=== PATIENT | male | born 1965 | race Two or more races ===

== ENCOUNTER 2025-08-19 17:46 | Inpatient (IN) | payer MEDICARE, MEDICAID ==
[~2025-08-19] VITALS: Ht 182.9 cm; Wt 69.0 kg
[~2025-08-19 17:46] MED LIST: ASPI-498 PO; ATOR40TA52 PO; CLOP75TA70 PO; NIAC-10 PO; NITR0.4S29 SL
[2025-08-19 18:00] VITALS: PULSE 61; RESP 14; O2SAT 100
--- NOTE | 2025-08-19 19:23 | ED.PDOC ---
History of Present Illness HPI Comments 60-year-old male who came to ER via EMS for hypoglycemia. Per EMS, patient picked up at home, for the past few weeks patient has been sleepless, weak, dizzy, and unable to eat or drink due to financial constraints (?). Noted the patient speak slowly, and he claims this has been ongoing the past 2 weeks. Blo od sugar on scene was 54, was given D10 and it went up to 157. Patient has a history of schizophrenia. REVIEW OF SYSTEMS: General: No fever, no chills, or fatigue HEENT: No sore throat, no earache, no congestion, no neck pain. Cardiac: No chest pain. No palpitations. Lungs: No shortness of breath, no cough. GI: No nausea, no vomiting, no diarrhea, no constipation, no abdominal pain : No dysuria, frequency, or urgency. No hematuria. Musculoskeletal: No joint pain , no joint swelling, no extremity edema. Skin: No rash, no itching. Neuro: No headache, (+) dizziness, (+) weakness, EXAM: General: Awake, alert and oriented. No acute distress. Skin: Skin dry, poor skin turgor. Appropriate color for ethnicity. HEENT: The head is normocephalic and atraumatic. Conjunctivae are clear without exudates or hemorrhage. Sclera is non-icteric. EOM are intact. No signs of nystagmus. Eyelids are normal in appearance without swelling or lesions. Oral mucosa is pink and moist Neck: The neck is supple with normal range of motion. No JVD. Cardiac: Heart rate and rhythm are normal. No murmurs, gallops, or rubs are auscultated. Respiratory: No signs of respiratory distress. Lung sounds are clear in all lobes bilaterally without rales, rhonchi, or wheezes. Abdominal: Abdomen is soft, non-tender without distention. Bowel sounds are present and normoactive in all four quadrants. Extremities: Upper and lower extremities are atraumatic in appearance without deformity or edema. Neurological: The patient is awake, alert and oriented Speech is slow and slurred. Patient reports this has been ongoing for a week. There is no facial asymmetry. No focal weakness. Chief Complaint: Hypoglycemia Time Seen by MD: 19:22 Primary Care Provider: SHEREEN BENNETT? Reviewed Notes: Nurses Notes Allergies: Coded Allergies: NO KNOWN ALLERGIES (Unverified , 9/30/16) Home Meds Reported Medications Aspirin (ASPIRIN 81) 81 Mg Tab, 81 MG PO, TAB 06/13/16 Clopidogrel Bisulfate (CLOPIDOGREL) 75 Mg Tab, 75 MG PO DAILY, #90 TAB 1 Refill 06/13/16 Niacin (Antihyperlipidemic) (Niaspan) 500 Mg Tab, 500 MG PO, TAB 06/13/16 Atorvastatin Calcium (ATORVASTATIN CALCIUM) 40 Mg Tab, 1 TAB PO DAILY, #30 TAB 5 Refills 06/13/16 Nitroglycerin (NTROSTAT SUBLINGUAL) 0.4 Mg Sl, 0.4 MG SL PRN PRN for FOR CHEST PAIN, #25 06/11/16 Information Source: Patient, Emergency Med Personnel Mode of Arrival: EMS Past Medical History Surgical History: PTCA Family History Family History: No family hx of Heart dawood Social History Smoker: Non-Smoker Alcohol: Denies ETOH Use Drugs: Denies Drug Use Lives In: Home Was a procedure done? Was a procedure done?: No Differential Dx Considerations may include: Differential diagnosis considered includes but not limited to intracranial hemorrhage, stroke, head injury, seizure, metabolic disturbance, electrolyte imbalance, infection, substance intoxication, psychiatric cause, other systemic illness, other X-Ray, Labs, Meds, VS Vital Signs Date Time Temp Pulse Resp B/P (MAP) Pulse Ox O2 Delivery O2 Flow Rate FiO2 08/19/25 18:12 97.6 72 18 122/80 100 97.6 08/19/25 18:00 61 14 100 Room Air* 0 21 08/19/25 18:00 61 14 109/73 (85) 100 Lab Test 08/19/25 19:50 Range/Units Sodium Level 119 *L 136-145 mmol/L Potassium Level 3.2 L 3.5-5.1 mmol/L Chloride Level 85 L 98-107 mmol/L Carbon Dioxide Level 25 20-31 mmol/L Anion Gap 9 5-15 Blood Urea Nitrogen 9 9-23 mg/dL Creatinine 1.04 0.700-1.30 mg/dL Glomerular Filtration Rate Calc 83 >90 mL/min BUN/Creatinine Ratio 8.7 L 10.0-20.0 Serum Glucose 141 H 74-106 mg/dL Calcium Level 9.4 8.7-10.4 mg/dL Total Bilirubin 1.0 0.2-1.0 mg/dL Aspartate Amino Transferase (AST) 69 H 13-40 U/L Alanine Aminotransferase (ALT) 27 7-40 U/L Alkaline Phosphatase 145 H 46-116 U/L Troponin I High Sensitivity 4 </=54 ng/L Total Protein 7.7 5.7-8.2 g/dL Albumin 4.6 3.2-4.8 g/dL Current Medications Medications (Trade) Dose Ordered Sig/Egnaro Route Start Time Stop Time Status Last Admin Sodium Chloride 1,000 ml @ 1,000 mls/hr Q1H ONCE IV 08/19/25 19:00 08/19/25 19:59 DC 08/19/25 19:52 Time of 1ST Reevaluation: 19:16 Reevaluation 1ST: Unchanged Patient Education/Counseling: Need For Follow Up Family Education/Counseling: No Family Present SEPSIS Sepsis Screen Date sepsis recognized/suspect: Aug 19, 2025 Time Sepsis recognized/suspect: 1815 Recent Procedure: No On Antibiotic Therapy: No Respiratory Rate >20: No Heart Rate >90: No Temp<36 C (96.8 F) or >38.3 C: No SBP <90 or MAP <65 mmHG: No New Acute Mental Status Change: No Is the patient on CPAP, BIPAP,: No Physician Orders Electrocardigram (08/19/25 19:00) Head Without Contrast (08/19/25 19:00) Regular Diet (08/20/25 Breakfast) Complete Blood Count (08/19/25 20:21) Vital Signs Date Time Temp Pulse Resp B/P (MAP) Pulse Ox O2 Delivery O2 Flow Rate FiO2 08/19/25 18:12 97.6 72 18 122/80 100 97.6 08/19/25 18:00 61 14 100 Room Air* 0 21 08/19/25 18:00 61 14 109/73 (85) 100 Medications Medications Dose Ordered Sig/Genaro Route Start Time Stop Time Status Last Admin Dose Admin Sodium Chloride 1,000 ml @ 1,000 mls/hr Q1H ONCE IV 08/19/25 19:00 08/19/25 19:59 DC 08/19/25 19:52 Departure 1 Departure Time of Disposition: 20:22 Impression: Primary Impression: Hyponatremia Disposition: ADMITTED INPATIENT Condition: Stable Comments 60-year-old male who presents to the emergency department reporting hypoglyc emia. Blood sugar improved with treatment by EMS. Patient found to be hyponatremic. Likely chronic. Patient admitted to hospitalist service for further treatment, evaluation and monitoring. Critical Care Note Critical Care Time?: No Stability Stability form required: No Heart Score Heart Score: Heart Score Response (Comments) Value History N/A 0 EKG N/A 0 Age N/A 0 Risk Factors N/A 0 Troponin N/A 0 Total 0 I personally scribed for CRISTINE GRIMM MD ([email or web address]) on 08/19/25 at 19:23. Electronically submitted by Dru Murry ([email or web address]). CRISTINE GRIMM MD Aug 19, 2025 19:23
[2025-08-19] MEDS: SODIUM CHLORIDE 0.9% 1,000 ML IV ONE (19:52)
--- NOTE | 2025-08-19 19:54 | DVH ---
EXAM: CT HEAD WITHOUT CONTRAST INDICATION: Slurred speech TECHNIQUE: CT of the head without intravenous contrast. Radiation Dose : 1. Head: CT Dose: CTDI volume is 50.09 mGy. Dose-length product is 703.04 mGy*cm The dose indicators for CT are the volume Computed Tomography (CT) Dose Index (CTDIvol) and the Dose Length Product (DLP), and are measured in units of mGy and mGy-cm, respectively. These indicators are not patient dose, but values generated from the CT scanner acquisition factors. The report includes radiation exposure data for exposures received during this examination. COMPARISON: None FINDINGS: Motion artifact degrades fine detail. The cerebral parenchyma appears to be normal configuration and attenuation. The ventricles, cisterns, and sulci appear age-appropriate. There is no evidence for acute territorial infarct, hemorrhage, or mass effect. The orbits are normal. The visualized paranasal sinuses and mastoid air cells are clear. The soft tissues and osseous structures appear within normal limits. IMPRESSION: 1. No acute territorial infarct, intracranial hemorrhage, or mass effect. If clinical symptoms persist, MRI may be beneficial in further evaluation. Radiation optimization: All CT scans at this facility use at least one of these dose optimization techniques: automated exposure control mA and/or kV adjustment per patient size (includes targeted exams where dose is matched to clinical indication) or iterative reconstruction.
[2025-08-19 20:16] LABS: Alanine Aminotransferase 27 U/L (7-40); Albumin 4.6 g/dL (3.2-4.8); Anion Gap 9 (5-15); BUN/Creatinine Ratio 8.7 (10.0-20.0); Bilirubin, Total 1.0 mg/dL (0.2-1.0); Calcium 9.4 mg/dL (8.7-10.4); Carbon Dioxide 25 mmol/L (20-31); Total Protein 7.7 g/dL (5.7-8.2)
[2025-08-19 20:20] LABS: Alkaline Phosphatase 145 U/L (46-116); Blood Urea Nitrogen 9 mg/dL (9-23); Chloride 85 mmol/L (98-107); Glucose 141 mg/dL (74-106); Potassium 3.2 mmol/L (3.5-5.1)
[2025-08-19 20:21] LABS: Sodium 119 mmol/L (136-145)
[2025-08-19 20:55] LABS: Hematocrit 32.1 % (41.0-53.0); Hemoglobin 11.7 g/dL (13.5-17.5); Mean Corpuscular Hemoglobin 30.3 pg (28.0-32.0); Mean Corpuscular Volume 83.5 fL (80.0-100.0); Nucleated Red Blood Cells % 0.1 %
[2025-08-19] MEDS: POTASSIUM CHL 20MEQ/100ML 100 ML IV ONE (23:07)
[2025-08-20] VITALS (8 sets, daily range): BP systolic 112–131; BP diastolic 69–82; PULSE 53–77; RESP 16–17; TEMP 97.1–98; O2SAT 93–100
[2025-08-20] MEDS: SODIUM CHLORIDE 0.9% 1,000 ML IV SCH
[2025-08-20] MEDS ORDERED: DOCUSATE SOD 100 MG CAP PO PRN
[2025-08-20] MEDS ORDERED: NITROGLYCERIN 0.4 MG SL TAB SL PRN
[2025-08-20] MEDS ORDERED: ONDANSETRON HCL 4 MG/2 ML VIAL IV PRN
[2025-08-20] MEDS ORDERED: ACETAMINOPHEN 325 MG TAB PO PRN
[2025-08-20] MEDS ORDERED: MORPHINE SULFATE INJ 2 MG/ml SYRG IV PRN
[2025-08-20] MEDS ORDERED: HYDROcodone-ACET 5/325MG TAB PO PRN
--- NOTE | 2025-08-20 00:17 | DVHHP2 ---
History of Present Illness Reason for Visit: Hyponatremia History of Present Illness The patient is a 60-year-old male with past medical history of schizophrenia, acute coronary syndrome, and hyperlipidemia who presented to [facility] ED for evaluation of hypoglycemia. As reported by EMS, patient was picked up at home, noted to be sleepless, weakness, dizziness, unable to eat or drink due to financial constraints for the past 2 weeks. Blood sugar on the scene was 54 mg/dL and was given D10, blood glucose improved to 157 EN route to our facility ED. Patient was seen and evaluated in the ED, laboratory data shows WBC 2.4, hemoglobin 11.7, hematocrit 32.1, platelets 206, sodium 119, potassium 3.2, BUN 9, creatinine 1.04, GFR 83, glucose 141, calcium 9.4, troponin 4, AST 69, ALT 27, alkaline phos 145, blood pressure 111/65, heart rate 60, temperature 97.6 F, O2 saturation 99% on room air. Head CT showed no acute territorial infarct, intracranial hemorrhage, or mass effect. Please see medication orders section in the computer. On my assessment, patient denied chest pain, no headache, dizziness, diaphoresis, seizures activities, shortness of breaths, no diarrhea, nausea, vomiting, fever, no chills. Patient was admitted for further evaluation and medical management. Past Medical History Hyperlipidemia, Acute coronary syndrome, schizophrenia. Past Surgical History PTCA Family History Reviewed, noncontributory to the management of this case. Past Social History The patient lives at home, denies smoking, alcohol or illicit drugs abuse. Review of Systems Constitutional: Yes: Weakness; No: Fever, Chills, Sweats, Malaise, Other Eyes: No: Pain, Vision change, Conjunctivae inflammation, Eyelid inflammation, Other, Redness ENT: No: Ear pain, Ear discharge, Nose pain, Nose discharge, Nose congestion, Mouth pain, Mouth swelling, Throat pain, Throat swelling, Other Respiratory: No: Cough, Dry, Shortness of breath, SOB with excertion, Wheezing, Hemoptysis, Pleuritic Pain, Sputum, Wheezing, Other Cardiovascular: No: Chest Pain, Palpitations, Orthopnea, Paroxysmal Noc. Dyspnea, Edema, Lt Headedness, Other Gastrointestinal: No: Nausea, Vomiting, Abdominal Pain, Diarrhea, Constipation, Melena, Hematochezia, Other Genitourinary: No Dysuria, No Frequency, No Incontinence, No Hematuria, No Retention, No Other Musculoskeletal: No: other, neck pain, shoulder pain, arm pain, back pain, hand pain, leg pain, foot pain Skin: No: Rash, Lesions, Jaundice, Bruising, Other Neurological: No: Weakness, Numbness, Incoordination, Change in speech, Confusion, Seizures, Other Allergies: Coded Allergies: NO KNOWN ALLERGIES (Unverified , 05/25/16) Exam Vital Signs Vital Signs Date Time Temp Pulse Resp B/P (MAP) Pulse Ox O2 Delivery O2 Flow Rate FiO2 08/19/25 19:30 Room Air* 0 21 08/19/25 19:30 97.5 60 11 111/65 (80) 99 97.5 General Appearance: Alert, Oriented X3, Cooperative, No acute distress HEENT: Atraumatic, PERRLA, EOMI, Mucous membr. moist/pink Respiratory: Normal air movement Cardiovascular: Regular rate, Normal S1, Normal S2, No murmurs Abdominal: Normal bowel sounds, Soft, No tenderness, No hepatospenomegaly, No masses Extremities: No clubbing, No cyanosis, No edema, Normal pulses, No tenderness/swelling Skin: No rashes, No significant lesion Neuro: Normal speech, Normal tone, Sensation intact, Cranial nerves 3-12 NL, Reflexes 2+, Other (Generalized weakness) Psych/Mental Status: Mental status NL, Mood NL Labs/Xrays Labs Test 08/19/25 19:50 Range/Units White Blood Count 2.4 L 4.4-10.8 10^3/uL Red Blood Count 3.85 L 4.5-5.90 10^6/uL Hemoglobin 11.7 L 13.5-17.5 g/dL Hematocrit 32.1 L 41.0-53.0 % Mean Corpuscular Volume 83.5 80.0-100.0 fL Mean Corpuscular Hemoglobin 30.3 28.0-32.0 pg Mean Corpuscular Hemoglobin Concent 36.3 H 32.0-36.0 g/dL Red Cell Distribution Width 13.2 11.8-14.3 % Platelet Count 206 140-450 10^3/uL Mean Platelet Volume 8.9 6.9-10.8 fL Neutrophils (%) (Auto) 54.6 37.0-80.0 % Lymphocytes (%) (Auto) 35.1 10.0-50.0 % Monocytes (%) (Auto) 3.2 0.0-12.0 % Eosinophils (%) (Auto) 6.0 0.0-7.0 % Basophils (%) (Auto) 1.1 0.0-2.0 % Neutrophils # (Auto) 1.3 L 1.6-8.6 10 ^3/uL Lymphocytes # (Auto) 0.9 0.4-5.4 10 ^3/uL Monocytes # (Auto) 0.1 0-1.3 10 ^3/uL Eosinophils # (Auto) 0.1 0-0.8 10 ^3/uL Basophils # (Auto) 0 0-0.2 10 ^3/uL Nucleated Red Blood Cells 0.1 % Sodium Level 119 *L 136-145 mmol/L Potassium Level 3.2 L 3.5-5.1 mmol/L Chloride Level 85 L 98-107 mmol/L Carbon Dioxide Level 25 20-31 mmol/L Anion Gap 9 5-15 Blood Urea Nitrogen 9 9-23 mg/dL Creatinine 1.04 0.700-1.30 mg/dL Glomerular Filtration Rate Calc 83 >90 mL/min BUN/Creatinine Ratio 8.7 L 10.0-20.0 Serum Glucose 141 H 74-106 mg/dL Calcium Level 9.4 8.7-10.4 mg/dL Total Bilirubin 1.0 0.2-1.0 mg/dL Aspartate Amino Transferase (AST) 69 H 13-40 U/L Alanine Aminotransferase (ALT) 27 7-40 U/L Alkaline Phosphatase 145 H 46-116 U/L Troponin I High Sensitivity 4 </=54 ng/L Total Protein 7.7 5.7-8.2 g/dL Albumin 4.6 3.2-4.8 g/dL PATIENT: SUE BIRMINGHAMOACCT: [id number] UNIT: [id number] : 1965 LOC: ER ROOM / BED: / AGE / SEX: 60 / M ADM STATUS: REG ER SERVICE 1900 ORDERING PHYSICIAN: CRISTINE GRIMM MD PROCEDURE(s): HWOCT - HEAD WITHOUT CONTRAST REASON: Slurred speech ORDER NUMBER(s): [id number], ACCESSION NUMBER(s): [id number] EXAM: CT HEAD WITHOUT CONTRAST INDICATION: Slurred speech TECHNIQUE: CT of the head without intravenous contrast. Radiation Dose : 1. Head: CT Dose: CTDI volume is 50.09 mGy. Dose-length product is 703.04 mGy*cm The dose indicators for CT are the volume Computed Tomography (CT) Dose Index (CTDIvol) and the Dose Length Product (DLP), and are measured in units of mGy and mGy-cm, respectively. These indicators are not patient dose, but values generated from the CT scanner acquisition factors. The report includes radiation exposure data for exposures received during this examination. COMPARISON: None FINDINGS: Motion artifact degrades fine detail. The cerebral parenchyma appears to be normal configuration and attenuation. The ventricles, cisterns, and sulci appear age-appropriate. There is no evidence for acute territorial infarct, hemorrhage, or mass effect. The orbits are normal. The visualized paranasal sinuses and mastoid air cells are clear. The soft tissues and osseous structures appear within normal limits. IMPRESSION: 1. No acute territorial infarct, intracranial hemorrhage, or mass effect. If clinical symptoms persist, MRI may be beneficial in further evaluation. SEPSIS Sepsis Screen Date sepsis recognized/suspect: Aug 19, 2025 Time Sepsis recognized/suspect: 1929 Recent Procedure: No On Antibiotic Therapy: No Respiratory Rate >20: No Heart Rate >90: No Temp<36 C (96.8 F) or >38.3 C: No SBP <90 or MAP <65 mmHG: No New Acute Mental Status Change: No Is the patient on CPAP, BIPAP,: No Physician Orders Electrocardigram (08/19/25 19:00) Head Without Contrast (08/19/25 19:00) Regular Diet (08/20/25 Breakfast) Vital Signs Date Time Temp Pulse Resp B/P (MAP) Pulse Ox O2 Delivery O2 Flow Rate FiO2 08/19/25 19:30 Room Air* 0 21 08/19/25 19:30 97.5 60 11 111/65 (80) 99 97.5 08/19/25 18:12 97.6 72 18 122/80 100 97.6 08/19/25 18:00 61 14 100 Room Air* 0 21 08/19/25 18:00 61 14 109/73 (85) 100 Laboratory Tests Test 08/19/25 19:50 White Blood Count 2.4 10^3/uL (4.4-10.8) L Medications Medications Dose Ordered Sig/Genaro Route Start Time Stop Time Status Last Admin Dose Admin Potassium Chloride 100 ml @ 50 mls/hr ONCE ONCE IV 08/19/25 20:30 08/19/25 22:29 DC 08/19/25 23:07 50 MLS/HR Sodium Chloride 1,000 ml @ 1,000 mls/hr Q1H ONCE IV 08/19/25 19:00 08/19/25 19:59 DC 08/19/25 19:52 1,000 MLS/HR Assessment/Plan Assessment/Plan Hyponatremia Leukopenia Hypokalemia Hyperglycemia Generalized weakness Plan 1. Admit to telemetry unit 2. Breathing treatment 3. Pain control management 4. Management of fluids and electrolytes 5. Consultation for Nephrology 6. Diagnostic tests head CT 7. DVT prophylaxis-on aspirin 8. Repeat labs CBC, CMP in a.m. 9. Continue with current medical management 10. Treatment plan discussed with patient and RN. Patient verbalized unde rstanding. Plan discussed with: Patient, Other (RN) Problem List: (1) Hyponatremia (2) Leukopenia (3) Hypokalemia (4) Hyperglycemia (5) Generalized weakness Date of Service: Aug 19, 2025 Billing Provider: ISMAEL HIRSCH DNP Common Visit Codes: [id number] INP/OBS CARE (HIGH) ISMAEL HIRSCH DNP Aug 20, 2025 00:17
[2025-08-20] MEDS ORDERED: OLAN1TAB26 PO (01:52)
[2025-08-20 07:18] LABS: Hemoglobin 11.4 g/dL (13.5-17.5)
[2025-08-20 07:20] LABS: Hematocrit 31.6 % (41.0-53.0); Mean Corpuscular Hemoglobin 30.7 pg (28.0-32.0); Mean Corpuscular Volume 84.9 fL (80.0-100.0); Nucleated Red Blood Cells % 0.3 %
[2025-08-20 07:44] LABS: Alanine Aminotransferase 42 U/L (7-40); Albumin 4.2 g/dL (3.2-4.8); Alkaline Phosphatase 182 U/L (46-116); Anion Gap 8 (5-15); BUN/Creatinine Ratio 11.9 (10.0-20.0); Blood Urea Nitrogen 10 mg/dL (9-23); Calcium 9.0 mg/dL (8.7-10.4); Carbon Dioxide 25 mmol/L (20-31); Chloride 92 mmol/L (98-107); Glucose 65 mg/dL (74-106); Potassium 4.1 mmol/L (3.5-5.1); Sodium 125 mmol/L (136-145); Total Protein 6.9 g/dL (5.7-8.2)
[2025-08-20 07:45] LABS: Bilirubin, Total 1.1 mg/dL (0.2-1.0)
[2025-08-20] MEDS: CLOPIDOGREL BISULFATE 75 MG TAB PO SCH (08:51)
--- NOTE | 2025-08-20 09:26 | DVH ---
TECHNIQUE: Real-time ultrasound imaging of the abdomen was performed with grayscale and color Doppler. INDICATION: Property Appraiser/hepatic pathology COMPARISON: None FINDINGS: Limited evaluation of the liver due to bowel gas Liver measures 14.9 cm. Imaged portions unremarkable in echogenicity and echotexture without focal mass. Portal vein is normal in caliber and demonstrates normal hepatopetal flow. Gallbladder demonstrates no evidence for cholelithiasis. There is no pericholecystic fluid. The wall thickness is normal. The common bile duct measures 3 mm. No intrahepatic biliary ductal dilatation. The right kidney measures 10.6 cm. There is no hydronephrosis or sonographic evidence of nephrolithiasis. The visualized portion of the pancreas is unremarkable. IMPRESSION: Limited characterization of the left hepatic lobe. Recommend obtaining CT abdomen pelvis or multiphasic MRI abdomen with and without contrast to further characterize if there is concern for liver abnormality. No evidence for cholelithiasis.
[2025-08-20] MEDS ORDERED: DEXTROSE (50%) 50ML SYRG IV PRN (09:30)
[2025-08-20] MEDS: FOLIC ACID 1 MG in D5W 5% 50 ML INJ SCH (10:00)
[2025-08-20] MEDS: THIAMINE 100mg/ml INJ (200mg/2ml VIAL) IV SCH (10:00)
[2025-08-20] MEDS ORDERED: THIAMINE 100mg/ml INJ (200mg/2ml VIAL) IV SCH (10:00)
[2025-08-20 10:08] LABS: Urine Protein, UAD Negative (Negative)
[2025-08-20 10:10] LABS: Amphetamine Screen, Urine Neg (NEGATIVE); Barbiturate Scree,Urine Neg (NEGATIVE); Benzodiazephine Screen, Urine Neg (NEGATIVE); Cannabinoid Screen, Urine Neg (NEGATIVE); Cocaine Screen, Urine Neg (NEGATIVE); Opiate Scree,Urine Neg (NEGATIVE); Phencyclidine Screen, Urine Neg (NEGATIVE)
--- NOTE | 2025-08-20 10:28 | DVHINCON2 ---
Date of service: Aug 20, 2025 Referring Physician Zhen Nolasco, nurse practitioner Reason for Consultation Hyponatremia History of Present Illness Patient is a 60-year-old male with past medical history significant for atrial fibrillation, coronary artery disease schizophrenia and hyperlipidemia is admitted for generalized weakness found to have hyponatremia with normal kidney function nephrology is consulted to assist in the management of hyponatremia Past Medical History Hyperlipidemia , coronary artery disease AFib Schizophrenia Past Surgical History PTCA Allergies: Coded Allergies: NO KNOWN ALLERGIES (Unverified , 05/25/16) Home Meds Reported Medications Olanzapine (OLANZAPINE) 7.5 Mg Tab, 7.5 MG PO DAILY for 30 Days, MG 08/20/25 Aspirin (ASPIRIN 81) 81 Mg Tab, 81 MG PO, TAB 06/13/16 Clopidogrel Bisulfate (CLOPIDOGREL) 75 Mg Tab, 75 MG PO DAILY, #90 TAB 1 Refill 06/13/16 Niacin (Antihyperlipidemic) (Niaspan) 500 Mg Tab, 500 MG PO, TAB 06/13/16 Atorvastatin Calcium (ATORVASTATIN CALCIUM) 40 Mg Tab, 1 TAB PO DAILY, #30 TAB 5 Refills 06/13/16 Nitroglycerin (NTROSTAT SUBLINGUAL) 0.4 Mg Sl, 0.4 MG SL PRN PRN for FOR CHEST PAIN, #25 06/11/16 Current Medications Current Medications Medications (Trade) Dose Ordered Sig/Genaro Route PRN Reason Start Time Stop Time Status Last Admin Atorvastatin Calcium (Lipitor) 20 mg HS PO 08/20/25 22:00 Aspirin 81 mg DAILY PO 08/20/25 10:00 08/20/25 08:52 Clopidogrel Bisulfate (Plavix) 75 mg DAILY PO 08/20/25 10:00 08/20/25 10:44 DC 08/20/25 08:51 Sodium Chloride 1,000 ml @ 120 mls/hr Q8H20M IV 08/20/25 00:00 08/20/25 09:23 DC 08/20/25 06:42 Acetaminophen/ Hydrocodone Bitart ([place] 5/325MG Tab) 1 tab Q4HP PRN PO MODERATE PAIN (4-6 PAIN SCALE) 08/20/25 00:00 Ondansetron HCl (Zofran) 4 mg Q4HP PRN IV NAUSEA / VOMITING 08/20/25 00:00 Docusate Sodium (Colace Capsule) 100 mg BIDPRN PRN PO FOR CONSTIPATION 08/20/25 00:00 Acetaminophen (Tylenol Tablet) 650 mg Q6HP PRN PO PAIN SCALE 1-3 OR TEMP>100.4 08/20/25 00:00 Nitroglycerin (Ntrostat Sublingual) 0.4 mg Q5MINP PRN SL FOR CHEST PAIN 08/20/25 00:00 Morphine Sulfate 2 mg Q30M PRN IV FOR CHEST PAIN 08/20/25 00:00 Thiamine HCl 100 mg DAILY IV 08/20/25 10:00 08/20/25 09:42 DC Diagnostic Test (Pha) (Accu-Chek Comfort Curve T) 1 strip IQ4HR 08/20/25 12:00 Dextrose 50 ml UD PRN IV Blood Sugar LESS THAN 60 08/20/25 09:30 Thiamine HCl 100 mg DAILY IV 08/20/25 09:30 Folic Acid 1 mg/ Dextrose 50.2 ml @ 200.8 mls/ hr DAILY INJ 08/20/25 09:30 Family History: Cancer G8 BROTHER G8 SISTER Family history: Cardiovascular disease G8 BROTHER Review of Systems All 12 item review of systems reviewed with the patient nonsignificant except what is mentioned in the history of present illness H&P Exam Vital Signs/I&O Vital Sign Date Time Temp Pulse Resp B/P (MAP) Pulse Ox O2 Delivery O2 Flow Rate FiO2 08/20/25 09:05 98.0 58 16 131/82 (98) 100 98.0 08/20/25 01:37 Room Air* 0 21 Intake and Output 08/19/25 08/20/25 19:00 07:00 Intake Total 0 ml Output Total 499 ml Balance -499 ml Intake Oral 0 ml Output Urine Total 499 ml Physical Exam Patient lying comfortably in bed, at the bedside Lungs clear to auscultation bilaterally Cardiac exam regular rate and rhythm GI soft nontender was normal Extremities no clubbing cyanosis or edema Neuro nonfocal Labs/Diagnostic Data Labs/Diagnostic Data Laboratory Tests Test 08/20/25 10:45 08/20/25 10:43 08/20/25 09:06 08/20/25 08:54 Range/Units Sodium Level 126 L 136-145 mmol/L Lactic Acid Level 1.6 0.4-2.0 mmol/L Phosphorus Level 1.8 L 2.4-5.1 mg/dL Thyroid Stimulating Hormone (TSH) 2.20 0.55-4.78 uIU/mL Urine Color Light-yellow Yellow Urine Clarity Clear Clear Urine pH 5.5 5.0-9.0 Urine Specific [place] 1.007 1.001-1.035 Urine Protein Negative Negative Urine Ketones Trace Negative Urine Blood Negative Negative /uL Urine Nitrite Negative Negative Urine Bilirubin Negative Negative Urine Urobilinogen Normal Negative mg/dL Urine Leukocyte Esterase Negative Negative /uL Urine RBC <1 0 - 3 /hpf Urine Microscopic WBC 1 0-3 /HPF Urine Squamous Epithelial Cells None seen <5 /hpf Urine Bacteria None seen None Seen /hpf Urine Osmolality 240 mOsm/kg Urine Sodium 27 L 40-220 mmol/L Urine Glucose Normal Normal mg/dL Urine Opiates Screen Neg NEGATIVE Urine Fentanyl Screen Neg NEGATIVE Urine Barbiturates Screen Neg NEGATIVE Urine Phencyclidine Screen Neg NEGATIVE Urine Amphetamines Screen Neg NEGATIVE Urine Benzodiazepines Screen Neg NEGATIVE Urine Cocaine Screen Neg NEGATIVE Urine Cannabinoids Screen Neg NEGATIVE Prothrombin Time 12.1 H 9.3-11.8 sec Prothrombin Time INR 1.16 H 0.9-1.15 Activated Partial Thromboplast Time 34.5 24.5-34.5 SEC Hepatitis A IgM Antibody Negative Hepatitis B Surface Antigen Negative Negative Hepatitis B Core IgM Antibody Negative Negative Hepatitis C Antibody Negative Negative Test 08/20/25 05:45 08/19/25 19:50 Range/Units White Blood Count 2.3 L 2.4 L 4.4-10.8 10^3/uL Red Blood Count 3.72 L 3.85 L 4.5-5.90 10^6/uL Hemoglobin 11.4 L 11.7 L 13.5-17.5 g/dL Hematocrit 31.6 L 32.1 L 41.0-53.0 % Mean Corpuscular Volume 84.9 83.5 80.0-100.0 fL Mean Corpuscular Hemoglobin 30.7 30.3 28.0-32.0 pg Mean Corpuscular Hemoglobin Concent 36.1 H 36.3 H 32.0-36.0 g/dL Red Cell Distribution Width 13.2 13.2 11.8-14.3 % Platelet Count 177 206 140-450 10^3/uL Mean Platelet Volume 9.2 8.9 6.9-10.8 fL Neutrophils (%) (Auto) 52.8 54.6 37.0-80.0 % Lymphocytes (%) (Auto) 35.1 35.1 10.0-50.0 % Monocytes (%) (Auto) 4.4 3.2 0.0-12.0 % Eosinophils (%) (Auto) 6.6 6.0 0.0-7.0 % Basophils (%) (Auto) 1.1 1.1 0.0-2.0 % Neutrophils # (Auto) 1.2 L 1.3 L 1.6-8.6 10 ^3/uL Lymphocytes # (Auto) 0.8 0.9 0.4-5.4 10 ^3/uL Monocytes # (Auto) 0.1 0.1 0-1.3 10 ^3/uL Eosinophils # (Auto) 0.2 0.1 0-0.8 10 ^3/uL Basophils # (Auto) 0 0 0-0.2 10 ^3/uL Nucleated Red Blood Cells 0.3 0.1 % Erythrocyte Sedimentation Rate 24 H 0-20 mm/hr Sodium Level 125 #L 119 *L 136-145 mmol/L Potassium Level 4.1 3.2 L 3.5-5.1 mmol/L Chloride Level 92 L 85 L 98-107 mmol/L Carbon Dioxide Level 25 25 20-31 mmol/L Anion Gap 8 9 5-15 Blood Urea Nitrogen 10 9 9-23 mg/dL Creatinine 0.84 1.04 0.700-1.30 mg/dL Glomerular Filtration Rate Calc 101 83 >90 mL/min BUN/Creatinine Ratio 11.9 8.7 L 10.0-20.0 Serum Glucose 65 L 141 H 74-106 mg/dL Calcium Level 9.0 9.4 8.7-10.4 mg/dL Total Bilirubin 1.1 H 1.0 0.2-1.0 mg/dL Aspartate Amino Transferase (AST) 128 H 69 H 13-40 U/L Alanine Aminotransferase (ALT) 42 H 27 7-40 U/L Alkaline Phosphatase 182 H 145 H 46-116 U/L B-Type Natriuretic Peptide 36.15 0-100 pg/mL Total Protein 6.9 7.7 5.7-8.2 g/dL Albumin 4.2 4.6 3.2-4.8 g/dL Vitamin D 25-Hydroxy 33.5 30.0-100 ng/mL Hemoglobin A1c 4.6 <5.7 % A1C Troponin I High Sensitivity 4 </=54 ng/L Assessment Hyponatremia due to dehydration and excess water intake Schizophrenia Convulsive water intake Transaminitis AFib Hyperlipidemia Normal kidney function Anemia Recommendations Closely monitor fluid and electrolytes Avoid nephrotoxic medications Resume home medications Strict I&Os Fluid restrictions Avoid rapid correction of serum sodium not to exceed 6-8 milliequivalent/liter in the 1st 24 hours DC IV fluids Repeat BMP Psych consult GI consult We will continue to follow Patient seen and examined by myself. I discussed my plan of care with the patient, his and the primary nurse at the bedside I would like to thank Zhen for the consult, will follow up Plan discussed with: Patient, Spouse ASHLEY ALVAREZ MD Aug 20, 2025 10:28
[2025-08-20 10:32] LABS: Hepatitis B Surface Antigen Negative (Negative)
--- NOTE | 2025-08-20 10:32 | DVH ---
CHEST RADIOGRAPH INDICATION: PNA TECHNIQUE: Single frontal view of the chest was obtained COMPARISON: None FINDINGS: Lines and Tubes: None Lungs: Clear Pleura: No effusion. No pneumothorax. Cardiomediastinal contours: Unremarkable Bones: Unremarkable IMPRESSION: 1. No acute disease.
[2025-08-20 10:37] LABS: INR 1.16 (0.9-1.15); Partial Thromboplastin Time 34.5 SEC (24.5-34.5); Prothrombin Time 12.1 sec (9.3-11.8)
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
[2025-08-20 11:35] LABS: Hepatitis C Antibody Negative (Negative)
[2025-08-20 11:58] LABS: Sodium 126.0 mmol/L (136-145)
[2025-08-20 11:59] LABS: Magnesium 1.9 mg/dL (1.6-2.6)
[2025-08-20] MEDS: ACCU-CHEK COMFORT CURVE STRIP VI SCH (12:00)
[2025-08-20 13:14] LABS: Iron 180.0 ug/dL (65-175)
[2025-08-20 13:17] LABS: Total Iron Binding Capacity 288.0 ug/dL (250-425)
[2025-08-20] MEDS: POTASSIUM PHOSPHATE 22 MEQ in SODIUM CHL 0.9% 100 ML IV ONE ×2 (13:45→16:00)
[2025-08-20] MEDS: MAGNESIUM SULFATE 1GM/100ML 100 ML IV ONE (15:07)
[2025-08-20 15:12] LABS: Potassium 3.7 mmol/L (3.5-5.1)
[2025-08-20 15:13] LABS: Anion Gap 10 (5-15); Carbon Dioxide 24 mmol/L (20-31)
[2025-08-20 15:14] LABS: Calcium 9.0 mg/dL (8.7-10.4); Chloride 94 mmol/L (98-107); Sodium 128 mmol/L (136-145)
[2025-08-20 15:18] LABS: BUN/Creatinine Ratio 11.1 (10.0-20.0); Glucose 88 mg/dL (74-106)
[2025-08-20 15:23] LABS: Blood Urea Nitrogen 8 mg/dL (9-23)
--- NOTE | 2025-08-20 17:28 | DVHINCON2 ---
Date of Service if different f: Aug 20, 2025 Time of Service: 04:25 Assessment and Plan ASSESSMENT AND PLAN Assessment and Plan The patient is a 60-year-old male who lives with his and has no prior psychiatric history. He was admitted to the medical service for hyponatremia, and psychiatry was consulted to evaluate for grave disability (GD). The patient was evaluated by the technical writer and editor in collaboration with the registered nurse via the telepsychiatry portal. On evaluation, he appeared mildly disorganized but cooperative. He denied auditory and visual hallucinations. He endorsed poor sleep with associated feelings of helplessness, and emotional distress, but denied active suicidal ideation, intent, or plan. He attributed his symptoms primarily to significant sleep deprivation and ongoing medical stressors. He adamantly denied any intent to harm himself or others. He denied changes in appetite but described feeling depressed, overwhelmed, frustrated, and increasingly irritable over the past several days. He denied homicidal ideation, panic symptoms, social phobia, and manic or hypomanic symptoms. Supportive therapy and psychoeducation were provided, including discussion of coping strategies, sleep hygiene, and the importance of medical and psychiatric follow-up. The patient verbalized understanding and expressed agreement with the treatment recommendations. Past Psychiatric History Diagnoses: None Psychiatric medications: None Prior psychiatric hospitalizations: Denies History of suicide attempts: Denies Adverse reactions to psychotropic medications: Denied Substance Use History Alcohol: Denies THC: Denies Other illicit substances: Denies Prior detoxification/rehabilitation: Denies Family Psychiatric History Denies known family psychiatric illness Social / Developmental History Marital status: Living situation: Lives with Employment: Unemployed Developmental concerns: Denies Access to firearms: Denies service: Denies History of abuse: Denies Legal issues (probation/parole): Denies Review of Systems All systems reviewed and negative unless otherwise noted. Psychiatric: Depression, anxiety Physical Examination Vitals: Refer to nursing documentation Musculoskeletal / Neurological Normal body habitus Normal muscle strength and tone No extrapyramidal symptoms or spasticity Gait and station normal Mental Status Examination Appearance: 60-year-old male, fair hygiene, no acute distress Behavior: Alert and cooperative Eye Contact: Good Psychomotor Activity: No agitation or retardation Speech: Decreased rate and volume, normal tone Mood: Okay Affect: Anxious Thought Process: Linear and goal-directed Thought Content: Denies suicidal and homicidal ideation Perception: No hallucinations reported or observed Cognition: Attention and memory fair Orientation: Oriented to person, place, and time Insight/Judgment: Fair Assessment The patient is a 60-year-old male with no prior psychiatric history, admitted for hyponatremia, who was evaluated by psychiatry for possible grave disability. At the time of evaluation, the patient demonstrated intact reality testing, organized thought processes, and the ability to articulate his needs and participate in care. His symptoms appear reactive to medical illness and sleep deprivation, without evidence of a primary psychotic disorder, major mood disorder with psychotic features, or cognitive impairment. Fireworks Assembly Supervisor spoke to the pt's at bedside to discuss the disposition and she is in agreement. He does not meet criteria for grave disability or involuntary psychiatric hospitalization at this time. Legal Status Voluntary Diagnosis Psychiatric Diagnoses Unspecified mood disorder Insomnia Medical Diagnoses Hyponatremia (managed by primary medical team) Plan 1. Disposition No indication for inpatient psychiatric admission. Recommend case management involvement as needed for psychosocial support. If the patient continues to demonstrate stable mood, organized thinking, and denies suicidal ideation, he may be cleared psychiatrically for discharge from a mental health standpoint. Recommend outpatient primary care follow-up, with psychiatric referral if symptoms persist. 2. Medications Start quetiapine (Seroquel) 50 mg PO BID for mood stabilization and sleep, if medically appropriate given sodium status. Defer electrolyte monitoring and medical clearance to the primary team. 3. Psychotherapy / Support Supportive therapy provided, focusing on emotional validation and stress related to medical illness. Psychoeducation regarding the impact of sleep deprivation and medical illness on mood and cognition, early warning signs of emotional decompensation Coping strategies reviewed: Sleep hygiene, Grounding techniques, behavioral activation and use of spousal and social support Encouraged follow-up care if depressive or anxiety symptoms persist or worsen. Case was discussed with the RN Plan discussed with: Other (RN) ISAAK JUNG MD Aug 20, 2025 17:28
[2025-08-20] MEDS: ATORVASTATIN 20 MG TAB PO SCH (21:28)
[2025-08-21 05:00] VITALS: BP 123/83; PULSE 53; RESP 17; TEMP 97.5; O2SAT 100
[2025-08-21 08:00] VITALS: PULSE 56
[2025-08-21 08:23] LABS: Hematocrit 35.2 % (41.0-53.0); Hemoglobin 11.8 g/dL (13.5-17.5); Mean Corpuscular Hemoglobin 30.6 pg (28.0-32.0); Mean Corpuscular Volume 91.3 fL (80.0-100.0); Nucleated Red Blood Cells % 0.2 %
[2025-08-21 08:27] LABS: Albumin 4.6 g/dL (3.2-4.8); Anion Gap 10 (5-15); Bilirubin, Total 0.7 mg/dL (0.2-1.0); Calcium 9.6 mg/dL (8.7-10.4); Carbon Dioxide 25 mmol/L (20-31); Glucose 79 mg/dL (74-106); Potassium 3.7 mmol/L (3.5-5.1); Total Protein 7.5 g/dL (5.7-8.2)
[2025-08-21 08:30] LABS: Alanine Aminotransferase 72 U/L (7-40); Alkaline Phosphatase 256 U/L (46-116); BUN/Creatinine Ratio 5.8 (10.0-20.0); Blood Urea Nitrogen < 5 mg/dL (9-23); Chloride 97 mmol/L (98-107); Sodium 132 mmol/L (136-145)
[2025-08-21 08:35] LABS: Magnesium 2.2 mg/dL (1.6-2.6)
[2025-08-21 08:52] VITALS: BP 139/90; PULSE 66; RESP 16; TEMP 98.2; O2SAT 96
[2025-08-21] MEDS: OLANZapine 5 MG TAB PO SCH (11:11)
[2025-08-21] MEDS ORDERED: [UNRECOGNIZED DRUG - CODE] PO (12:13)
[2025-08-21] MEDS ORDERED: FOLITAB22 PO (12:13)
--- NOTE | 2025-08-21 12:28 | DVHPN2 ---
Progress Note Date Seen: Aug 21, 2025 Medical Necessity Reason Pt with a Central, PICC or Fol: No Subjective Patient reports: No new complaints Other Systems: Patient seen and examined by myself today in follow-up, at the bedside Objective vital signs Vital Sign Date Time Temp Pulse Resp B/P (MAP) Pulse Ox O2 Delivery O2 Flow Rate FiO2 08/21/25 08:52 98.2 66 16 139/90 (106) 96 98.2 08/21/25 08:10 Room Air* 0 21 Total Intake and Output 08/20/25 08/20/25 08/21/25 15:00 23:00 07:00 Intake Total 240 ml 1080 ml 850 ml Balance 240 ml 1080 ml 850 ml medications Current Medications Medications Dose Ordered Sig/Genaro Route Start Time Stop Time Status Last Admin Dose Admin Atorvastatin Calcium 20 mg HS PO 08/20/25 22:00 08/20/25 21:28 20 MG Aspirin 81 mg DAILY PO 08/20/25 10:00 08/21/25 09:21 81 MG Acetaminophen/ Hydrocodone Bitart 1 tab Q4HP PRN PO 08/20/25 00:00 Ondansetron HCl 4 mg Q4HP PRN IV 08/20/25 00:00 Docusate Sodium 100 mg BIDPRN PRN PO 08/20/25 00:00 Acetaminophen 650 mg Q6HP PRN PO 08/20/25 00:00 Nitroglycerin 0.4 mg Q5MINP PRN SL 08/20/25 00:00 Morphine Sulfate 2 mg Q30M PRN IV 08/20/25 00:00 Diagnostic Test (Pha) 1 strip IQ4HR 08/20/25 12:00 08/21/25 12:04 1 STRIP Dextrose 50 ml UD PRN IV 08/20/25 09:30 Thiamine HCl 100 mg DAILY IV 08/20/25 09:30 08/21/25 09:20 100 MG Folic Acid 1 mg/ Dextrose 50.2 ml @ 200.8 mls/ hr DAILY INJ 08/20/25 09:30 08/21/25 09:20 200.8 MLS/HR Olanzapine 7.5 mg DAILY PO 08/21/25 10:00 08/21/25 11:11 7.5 MG Examination: LUNGS:Normal, CVS:Normal, MSK:Normal laboratory and microbiology Laboratory Tests 08/21/25 07:39 Test 08/21/25 07:39 Range/Units Serum Glucose 79 74-106 mg/dL Microbiology Date/Time Source Procedure Growth Status 08/20/25 10:43 Blood Blood Culture - Preliminary NO GROWTH AFTER 24 HOURS OF INCUBATION. Resulted 08/20/25 09:06 Voided Urine Urine Culture - Preliminary No growth Resulted Problem List/Assessment/Plan Problem List/Assessment/Plan Hyponatremia due to dehydration and excess water intake Psychogenic polydipsia Schizophrenia Convulsive water intake Transaminitis AFib Hyperlipidemia Normal kidney function Anemia Recommendations Kidney function remained within normal limit Serum sodium slowly and appropriately resolving Resume home medications Strict I&Os Fluid restrictions DC IV fluids Repeat BMP Psych consult GI consult We will continue to follow Plan discussed with: Patient ASHLEY ALVAREZ MD Aug 21, 2025 12:27
[2025-08-21 13:00] VITALS: BP 138/73; PULSE 60; RESP 16; TEMP 98; O2SAT 100
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
== END 2025-08-21 14:03 | disposition home or self-care (01) | DRG 640 ==
LOC: ER 17:46 → EDBD 17:46 → OVERFLOW 23:53 → TELE-WESTW 08-20 01:10
PROVIDERS: ADMIT Student in an Organized Health Care Education/Training Program; ATTEND Student in an Organized Health Care Education/Training Program
DX: E16.2 Hypoglycemia, unspecified (principal); G93.41 Metabolic encephalopathy; K72.00 Acute and subacute hepatic failure without coma; E46 Unspecified protein-calorie malnutrition; R56.9 Unspecified convulsions; D72.819 Decreased white blood cell count, unspecified; D64.9 Anemia, unspecified; F20.9 Schizophrenia, unspecified; E87.1 Hypo-osmolality and hyponatremia; E86.0 Dehydration; E83.39 Other disorders of phosphorus metabolism; I48.91 Unspecified atrial fibrillation; E87.6 Hypokalemia; I25.10 Atherosclerotic heart disease of native coronary artery without angina pectoris; E78.5 Hyperlipidemia, unspecified; F39 Unspecified mood [affective] disorder; G47.00 Insomnia, unspecified; R73.9 Hyperglycemia, unspecified; R74.01 Elevation of levels of liver transaminase levels; Z82.49 Family history of ischemic heart disease and other diseases of the circulatory system; Z56.0 Unemployment, unspecified; Z95.5 Presence of coronary angioplasty implant and graft; Z68.20 Body mass index [BMI] 20.0-20.9, adult
CPT/HCPCS: 36415; 70450; 71045; 76705; 80048; 80053; 80074; 80307; 80320; 81001; 82306; 82533; 82607; 82728; 82746; 82962; 83036; 83540; 83550; 83605; 83735; 83880; 83930; 83935; 84100; 84295; 84300; 84443; 84484; 85025; 85045; 85610; 85652; 85730; 86141; 87040; 87086; 96360; 97110; 97116; 97163; 97530; G0378; J3480; J7060